=== PATIENT | male | born 1970 | race Caucasian/White ===

== ENCOUNTER 2022-09-14 17:39 | Emergency (ER) | payer BC ==
[2022-09-14] MEDS ORDERED: Sodium Chloride 0.9% 10 ML Syringe FLUSH PRN (17:49)
[2022-09-14] MEDS ORDERED: HYDROmorphone 0.5 MG/0.5 ML Syringe IVPUSH PRN (17:50)
[2022-09-14] MEDS ORDERED: Cyclobenzaprine 10 MG Tab PO ONE (17:51)
== END 2022-09-14 19:20 | disposition home or self-care (01) ==
LOC: LL.ED 17:39
DX: M54.6 Pain in thoracic spine (principal); Z87.891 Personal history of nicotine dependence; X50.1XXA Overexertion from prolonged static or awkward postures, initial encounter
CPT/HCPCS: 72070; 96374; 99283; 99283-25; A9270-GY; J1170; J3490